=== PATIENT | female | born 1940 | race Caucasian/White ===

== ENCOUNTER → 2017-01-06 | Outpatient (CLI) | payer MEDICARE, OTHER ==
[~2017-01-06] MED LIST: ASPI81TA2 PO; GLUC100015; HYDR-4246 PO; LISI-621 PO; MULITIVITAMIN
== END ==
LOC: IMA 10:15
PROVIDERS: ATTEND Family Medicine
DX: M81.0 Age-related osteoporosis without current pathological fracture (principal); Z78.0 Asymptomatic menopausal state; Z79.52 Long term (current) use of systemic steroids

== ENCOUNTER 2017-01-13 01:20 | Emergency (ER) | payer MEDICARE, OTHER ==
[~2017-01-13] VITALS: Ht 165.1 cm; Wt 91.6 kg
[~2017-01-13 01:20] MED LIST changes: -GLUC100015; -LISI-621 PO; -MULITIVITAMIN
[2017-01-13 01:27] VITALS: Ht 165.1 cm; Wt 91.6 kg
--- NOTE | 2017-01-13 01:29 | NUR ---
PROVIDER DR BACK IN ROOM W/ PT.
[2017-01-13] MEDS ORDERED: LISI-621 PO (01:35)
[2017-01-13] MEDS ORDERED: MULITIVITAMIN (01:37)
[2017-01-13] MEDS ORDERED: GLUC100015 (01:38)
[2017-01-13] MEDS ORDERED: FAMOTIDINE 20 MG in NORMAL SALINE 50 ML IV ONE (02:00)
[2017-01-13] MEDS ORDERED: DiphenhydrAMINE 50 MG/ML INJECTION IV ONE (02:00)
--- NOTE | 2017-01-13 02:15 | ERPDOC ---
Departure Disposition Decision Date: January 13, 2017 Disposition Decision Time: 02:45 Disposition: 02 TO [facility] Impression Impression Impression: Primary Impression: Angioedema Encounter type: initial encounter Qualified Codes: T78.3XXA - Angioneurotic edema, initial encounter Severity: Moderate Condition: Improved Seen By: Physician only Referrals: DIONI GORE MD (Family) Problems/Meds/Labs Reviewed?: Yes Medications reviewed and manag: Yes Follow up care ordered?: Yes Mental Status: Alert, Oriented Critical Care Note Total Time (mins): 37 Critical Care Spent: [id number] care of pt, Reviewing test results, Discuss the case w/staff, Documenting the MR, Discussion w/ family/DPOA During this visit the pt was: At Risk of Deterioration HPI - General Medical General Chief Complaint: Allergic Reaction Stated Complaint: SWOLLEN MOUTH Time Seen by Provider: 01:29 Source: patient Exam Limitations: no limitations HPI - General Medical Initial Comments 77 F presents to the ED with the chief complaint of swelling to her mouth. Patient noted onset of symptoms 1 day ago at 2230. Patient has noted gradual and progressive swelling of the tongue. Patient denies any pain or discomfort. Patient is breathing and speaking in full sentences currently. No history of similar symptoms in the past. She denies any new or recent exposures. Patient does note however that she was started on lisinopril within the past couple of months. She does not note any exacerbating or remitting factors. No other complaints or associated symptoms. Occurred At: home Onset: Gradual Allergies: Coded Allergies: Iodine and Iodide Containing Produc (Verified Allergy, Unknown, 01/15/15) adhesive (Verified Allergy, Unknown, 01/15/15) latex (Verified Allergy, Unknown, 01/15/15) Past History Past Medical History Metabolic: cancer, hypercholesterolemia, hypertension Neurological: headaches Psychological: depression Surgical History General: appendix, colonoscopy, gallbladder, other Cardiac: cardiac cath, other Family History Family PMH: FOUND: [place], diabetes, hypertension Vaccines Hx Influenza Vaccination: No Hx Pneumococcal Vaccination: Yes (5 YRS. AGO) Hx Tetanus Diptheria: No Hx Tetanus, Diptheria, Pertuss: No Social History Smoking Status: Never smoker Substance Use Type: does not use Alcohol Intake: none Review of Systems Constitutional Constitutional: DENIES: chills, fever Eyes General: DENIES: erythema, exudate Lids/Accessories: DENIES: erythema, swelling Vision: DENIES: acuity, blurring ENMT Ears: DENIES: pain Hearing: DENIES: hearing loss Balance: DENIES: ataxia, falling to one side Sinuses: DENIES: congestion, pain Nose: DENIES: nosebleeds, pain Mouth/Throat: DENIES: painful swallowing, sore throat Teeth: DENIES: pain Jaw: DENIES: pain Cardiovascular Cardiac: DENIES: chest pain, dyspnea on exertion Rhythm/Rate: DENIES: irregular beat, palpitations Vascular: DENIES: pedal edema, unilateral swelling Pulmonary Respiratory: DENIES: cough, dyspnea, pleuritic chest pain, sputum GI Upper Abdomen: DENIES: nausea, pain, vomiting Lower Abdomen: DENIES: diarrhea, pain General: DENIES: dysuria, frequency Musculoskeletal General: DENIES: joint pain, tenderness Integumentary Skin: DENIES: itching, rash Neurological General: DENIES: headache, numbness, weakness Psychiatric Psychiatric: DENIES: emotional instability, suicidal ideation/attempt Hematologic/Lymphatic Hematologic/Lymphatic: DENIES: frequent nosebleeds, lymphadenopathy Allergic/Immunological Allergic/Immunoligical: DENIES: allergic reactions, hives Physical Exam General General Nourishment: well nourished, well developed, appears stated age, adult Distress Description Mild distress. General Body Habitus: well groomed Vitals and Pain First Documented Vital Signs Date Time Temp Pulse Resp B/P Pulse Ox O2 Delivery O2 Flow Rate FiO2 01/13/17 01:27 95 20 133/73 95 Room Air 01/13/17 01:33 98.4 Weight: Kilograms: Height (feet): 5 Height (inches): 5.5 Triage Pain Scale: RN VS reviewed by Provider: Yes Normal Exams: Head: Normocephalic w/o trauma Eyes: Pupils are PERRLA w/ EOMI, No scleral icterus, irritation, or foreign bodies noted ENMT: No facial trauma, nasal exudates, pharyngeal erythema, or exudates are noted Dental: No fractured, loose, or missing teeth noted Neck: Full range of motion, without adenopathy, JVD, bruits or thyromegaly Chest/Resp: Clear all bowers, with good airflow, and symmetry bilaterally CV: Regular rate and rhythm, without murmur or gallop, Pulses 2+ all extremities, capillary refill, <2 seconds all ext., no pedal edema noted Abdomen: Bowel sounds positive, soft, non-tender, non-distended, no hepatosplenomegaly, masses or bruits noted Lymphatic: No lymphadenopathy, or lymphedema noted Musculoskeletal: No tenderness, or deformity noted, good range of motion, all extremities Integumentary: No rashes, hives, or bruising noted, hair and nails, without abnormality Neurologic: Patient is alert, and oriented, cranial nerves, motor/sensory/ cerebellar, exams w/o gross deficits, to observation Psychiatric: Patient exhibits, appropriate attention, emotion and affect ENMT (brief) Comments Oral - + mild to moderate enlargement of the tongue with dimpling from teeth. Vocie is slightly thick. Airway is patent at this time. Speaking in full sentences. Differential Diagnoses Considering: Metabolic, Other (angioedema/ALLERGIC reaction/medication effect) Progress Results/Orders Orders Procedure Category Date Status Time Methylprednisolone PHA 01/13/17 Complete Sod Succ (Solu-Medrol 02:00 Famotidine (Pepcid 20 PHA 01/13/17 Complete Mg Inj.) 02:00 Diphenhydramine PHA 01/13/17 Complete (Benadryl) 02:00 Epinephrine PHA 01/13/17 Complete (Adrenalin) 03:15 Medications Current ED Medications Methylprednisolone Sodium Succinate 125 mg 125 mg O ONCE IV Last administered on 01/13/17 02:19; Start 01/13/17 at 02:00; Stop 01/13/17 at 02:01; Status DC Famotidine/Sodium Chloride (PEPCID 20 mg INJ./NS) 52 ml @ 100 mls/hr O ONCE IV Last administered on 01/13/17 02:19; Start 01/13/17 at 02:00; Stop 01/13/17 at 02:31; Status DC Diphenhydramine HCl (Benadryl) 50 mg O ONCE IV Last administered on 01/13/17 02:16; Start 01/13/17 at 02:00; Stop 01/13/17 at 02:01; Status DC Epinephrine HCl (Adrenalin) 0.3 mg O ONCE IM ; Start 01/13/17 at 03:15; Stop 01/13/17 at 03:16; Status DC Progress Progress Patient was given solu-medrol 125 mg IV 1, Pepcid 20 mg IV 1, and Benadryl 50 mg IV 1 with some improvement of symptoms in the ED. Patient was given epinephrine 0.3 mg intramuscular 1 in the emergency Department. Patient is discussed with the hospitalist Dr. Byrd who is not comfortable keeping the patient at [facility] at this time. Dr. Byrd recommends transfer to a higher level of care where ENT/Anesthesia and other specialty services are available in case the patient's tongue should continue to swell and have airway complications. His concern is waiting to long and then having a potential failed airway situation in the ICU without specialty backup at [facility]. Patient is in agreement with the current plan of management. Patient is stable for transfer to [facility] [place] at this time. Risk versus benefit of transfer discussed in detail with the patient who verbalizes agreement and understanding. Patient was also counseled in detail regarding the risks vs benefits of the intramuscular epinephrine she verbalizes agreement and understanding of the risks versus benefits and agrees to proceed with intramuscular epinephrine. Patient was accepted by Dr. Gideon Loya at [facility] [place]. 37 minutes of critical care time was assessed to the patient due to the fact that IM EPI was given for angioedema. Patient required complex medical decision making, had potential for decompensation, and required repeated assessment at the bedside. YONAS BACK DO January 13, 2017 02:15
--- NOTE | 2017-01-13 02:34 | NUR ---
REPORT REPORT GIVEN CHAZ RYAN AT [facility].
[2017-01-13] MEDS ORDERED: EPINEPHRINE 1mg/ml INJECTION AMP IM ONE (03:15)
[2017-01-13 03:17] VITALS: BP 170/72; PULSE 100; RESP 18; TEMP 98.4; O2SAT 96
--- NOTE | 2017-01-13 03:20 | NUR ---
DEPART PT LEFT ER ADMIT STF XFER TO ER AND CICU FOR CONT CARE OF ANGIOEDEMA AND ALLERGIC REACTION. PT CARE XFERED TO [facility] FOR XPORT, PT LEFT ER ALERT, NO ACUTE DISTRESS AND VS. ABOVE.
--- NOTE | 2017-01-13 03:22 | NUR ---
REPORT REPORT GIVEN TO NAHOMY RYAN AT [facility].
== END 2017-01-13 03:20 | disposition short-term general hospital (02) ==
LOC: ED 01:20
DX: T78.3XXA Angioneurotic edema, initial encounter (principal)
CPT/HCPCS: 96365; 96372; 96375; 99284; J0171; J1200; J2930; J7050